=== PATIENT | female | born 1950 | race Caucasian/White ===

== ENCOUNTER 2017-02-01 23:56 | Emergency (ER) | payer MEDICARE, OTHER ==
[2017-02-02] MEDS ORDERED: DOXYcycline CAP(*) 100 MG PO ONE (00:50)
--- NOTE | 2017-02-02 00:52 | ED ---
Bite Injury/Animal - HPI Summary HPI Summary: Pt here w/ tick bite - noticed a few hours ago - doesn't believe this was attached for more than a few hours. Believes she got it in the garden tonight. Removed by nursing here today w/o difficulty. Pt would like doxycycline prophylaxis. Imms are UTD. - History of Current Complaint Chief Complaint: EDRashSkinAbscess Stated Complaint: TICK BITE/RIGHT ARM Time Seen by Provider: 02/02/17 00:33 Hx Obtained From: Patient Pain Intensity: 0 - Allergies/Home Medications Allergies/Adverse Reactions: Allergies Allergy/AdvReac Type Severity Reaction Status Date / Time ENVIRONMENTAL/SEASONAL Allergy Congestion Uncoded 02/03/14 10:39 HAYFEVER PMH/Surg Hx/FS Hx/Imm Hx Previously Healthy: Yes Endocrine/Hematology History: Denies: Hx Anticoagulant Therapy, Autoimmune Disease GI History: Reports: Hx Gastroesophageal Reflux Disease - WITH SPICY OR ACIDY FOODS Musculoskeletal History: Reports: Hx Arthritis - KNEES Sensory History: Reports: Hx Contacts or Glasses - READING GLASSES Denies: Hx Hearing Aid Opthamlomology History: Reports: Hx Contacts or Glasses - READING GLASSES Psychiatric History: Reports: Hx Anxiety - NO MEDICATION - Cancer History Cancer Type, Location and Year: MALIGNANT NEOPLASM OF BREAST - Surgical History Surgery Procedure, Year, and Place: 1963 tonsillectomy,. left shoulder surgery,. 1996 vein stripping to left leg [facility] [place]. 1999 LEFT FOOT GANGLION REMOVED, [facility] [place]. 2012 VARICOSE VEIN SURGERY BILATERAL LOWER EXTREMITIES, [facility] [place] Hx Anesthesia Reactions: No - Immunization History Immunizations Up to Date: Yes Infectious Disease History: No Infectious Disease History: Denies: Hx of Known/Suspected MRSA, Traveled Outside the in Last 30 Days - Social History Alcohol Use: Occasionally Hx Substance Use: No Substance Use Type: Reports: None Hx Tobacco Use: No Smoking Status (MU): Never Smoked Tobacco Review of Systems Constitutional: Negative Musculoskeletal: Negative Skin: Other - redness focal to area - no EM rash observed Neurological: Negative Psychological: Normal All Other Systems Reviewed And Are Negative: Yes Physical Exam Triage Information Reviewed: Yes Vital Signs On Initial Exam: Initial Vitals Temp Pulse Resp BP Pulse Ox 98.6 F 61 14 164/74 100 02/01/17 23:58 02/01/17 23:58 02/01/17 23:58 02/01/17 23:58 02/01/17 23:58 Vital Signs Reviewed: Yes Appearance: Positive: Well-Appearing, No Pain Distress, Well-Nourished Skin: Positive: Warm, Dry - 3mm area of erythema at location of tick bite - no EM rash and no signs of retained FB - nttp Head/Face: Positive: Normal Head/Face Inspection Eyes: Positive: EOMI ENT: Positive: Hearing grossly normal Respiratory/Lung Sounds: Positive: Breath Sounds Present Cardiovascular: Positive: Normal Musculoskeletal: Positive: Normal, Strength/ROM Intact Neurological: Positive: Normal, Sensory/Motor Intact, Alert, Oriented to Person Place, Time, CN Intact II-III Psychiatric: Positive: Normal Diagnostics - Vital Signs Vital Signs Temp Pulse Resp BP Pulse Ox 02/01/17 23:58 98.6 F 61 14 164/74 100 - Laboratory Lab Statement: Any lab studies that have been ordered have been reviewed, and results considered in the medical decision making process. Bite Injury Course/Dx - Course Course Of Treatment: Pt here tonight w tick bite she suspects to have been attached for < 12 hours. Removed by nursing. Discussed option to tx prophylactically w/ doxy or not as she does not technically need it however given the aggressive nature of ticks in our area, she would like to proceed with this medication. Reviewed f/u care and to monitor of danger s/sx of infection/Lyme. Pt agrees w/ plan. - Diagnoses Provider Diagnosis: Tick bite Discharge - Discharge Plan Condition: Stable Disposition: HOME Patient Education Materials: Tick Bite (ED) Referrals: Leslie Peres MD [Primary Care Provider] - Additional Instructions: Keep clean and monitor for signs of infection Follow-up with PCP if symptoms of Lyme disease develop *If you develop fever, chills, chest pain, shortness of breath, return to ED
[2017-02-02 02:35] VITALS: BP 130/77
== END 2017-02-02 01:45 | disposition home or self-care (01) ==
LOC: ED 23:56
DX: S40.861A Insect bite (nonvenomous) of right upper arm, initial encounter (principal); W57.XXXA Bitten or stung by nonvenomous insect and other nonvenomous arthropods, initial encounter; Y93.9 Activity, unspecified; Y92.89 Other specified places as the place of occurrence of the external cause; K21.9 Gastro-esophageal reflux disease without esophagitis; M17.0 Bilateral primary osteoarthritis of knee; F41.9 Anxiety disorder, unspecified; Z85.3 Personal history of malignant neoplasm of breast
CPT/HCPCS: 99281; A9270-GY

== ENCOUNTER 2018-10-16 15:55 | Emergency (ER) | payer MEDICARE, OTHER ==
[2018-10-16 16:19] VITALS: BP 131/63
--- NOTE | 2018-10-16 16:23 | UC ---
Throat Pain/Nasal Adalberto HPI - HPI Summary HPI Summary: 68-year-old female presents with 4 day history of sore throat. Reports she had URI symptoms a couple weeks ago that had resolved. She also notes that she has been around her grandson who was diagnosed with mono back in August. Denies fever , chills, nasal congestion, runny nose, ear pain, dysphagia, cough, abdominal pain, nausea, or vomiting. - History of Current Complaint Chief Complaint: UCRespiratory Stated Complaint: SORE THROAT Time Seen by Provider: 10/16/18 16:08 Hx Obtained From: Patient Pain Intensity: 0 - Allergies/Home Medications Allergies/Adverse Reactions: Allergies Allergy/AdvReac Type Severity Reaction Status Date / Time ENVIRONMENTAL/SEASONAL Allergy Congestion Uncoded 10/16/18 16:19 HAYFEVER PMH/Surg Hx/FS Hx/Imm Hx Previously Healthy: Yes Psychological History: Depression Other History Of: Negative For: Anticoagulant Therapy - Surgical History Surgical History: Yes Surgery Procedure, Year, and Place: 1963 tonsillectomy,. left shoulder surgery,. 1996 vein stripping to left leg [facility] [place]. 1999 LEFT FOOT GANGLION REMOVED, [facility] [place]. 2012 VARICOSE VEIN SURGERY BILATERAL LOWER EXTREMITIES, [facility] [place] - Family History Known Family History: Positive: Non-Contributory - Social History Occupation: Retired Lives: With Family Alcohol Use: Occasionally Substance Use Type: None Smoking Status (MU): Never Smoked Tobacco Review of Systems All Other Systems Reviewed And Are Negative: Yes Constitutional: Positive: Fatigue. Negative: Fever, Chills Eyes: Negative: Drainage, Eye Redness ENT: Positive: Sore Throat. Negative: Ear Ache, Nasal Discharge, Sinus Congestion, Sinus Pain/Tenderness Respiratory: Negative: Shortness Of Breath, Cough Gastrointestinal: Negative: Abdominal Pain, Vomiting, Nausea Genitourinary: Positive: Negative Musculoskeletal: Positive: Negative Neurological: Positive: Negative Is Patient Immunocompromised?: No Physical Exam - Summary Physical Exam Summary: GENERAL APPEARANCE: Well developed, well nourished, alert and cooperative, and appears to be in no acute distress. EYES: Conjunctiva clear. No drainage. PERRL, EOM intact. Vision is grossly intact. EARS: External auditory canals and tympanic membranes clear, hearing grossly intact. NOSE: No nasal discharge. THROAT: Mild pharyngeal erythema. Tonsils surgically absent. NECK: Neck supple, non-tender without lymphadenopathy. CARDIAC: Normal S1 and S2. No S3, S4 or murmurs. Rhythm is regular. There is no peripheral edema, cyanosis or pallor. Extremities are warm and well perfused. Capillary refill is less than 2 seconds. Peripheral pulses intact. LUNGS: Clear to auscultation without rales, rhonchi, wheezing or diminished breath sounds. ABDOMEN: Positive bowel sounds. Soft, nondistended, nontender. No guarding or rebound. No masses or hepatosplenomegally. MUSKULOSKELETAL: ROM intact to all extremities. No joint erythema or tenderness. Normal muscular development. Normal gait. SKIN: Skin normal color, texture and turgor with no lesions or eruptions. Triage Information Reviewed: Yes Vital Signs: Initial Vital Signs Temp 99.8 F 10/16/18 16:16 Pulse 71 10/16/18 16:16 Resp 12 10/16/18 16:16 BP 131/63 10/16/18 16:16 Pulse Ox 99 10/16/18 16:16 Vital Signs Reviewed: Yes Throat Pain/Nasal Course/Dx - Course Course Of Treatment: 68-year-old female presents with 4 day history of sore throat. Reports she had URI symptoms a couple weeks ago that had resolved. She also notes that she has been around her grandson who was diagnosed with mono back in August. Denies fever , chills, nasal congestion, runny nose, ear pain, dysphagia, cough, abdominal pain, nausea, or vomiting. Afebrile. Vital signs stable. Patient had mild pharyngeal erythema with surgically absent tonsils, no cervical lymphadenopathy and otherwise unremarkable exam. Rapid strep test was negative. Recommending symptomatic treatment for a viral pharyngitis. She is to follow-up with her primary care provider in 3-5 days if symptoms do not improve. Anticipatory guidance and warning signs are reviewed with the patient. Verbalizes understanding and agrees with plan of care. - Differential Dx/Diagnosis Differential Diagnosis/HQI/PQRI: Mononucleosis, Pharyngitis, Tonsillitis Provider Diagnosis: Viral pharyngitis Discharge - Sign-Out/Discharge Documenting (check all that apply): Patient Departure All imaging exams completed and their final reports reviewed: No Studies - Discharge Plan Condition: Stable Disposition: HOME Patient Education Materials: Pharyngitis (ED) Referrals: Leslie Peres MD [Primary Care Provider] - 3 Days Additional Instructions: Your rapid strep test in the clinic today was negative. Your symptoms are likely from a viral infection. Viral infections do not respond to antibiotics and are limited to the treatment of symptoms. Viral infections typically run their course in 7-10 days. Drink plenty of fluids to avoid dehydration especially if you are running any fever. Use salt water gargles several times a day. Take over the counter acetaminophen (Tylenol) or ibuprofen (Advil, Motrin) according to directions as needed for pain or fever. You may also use Chloraseptic spray or Cepacol lonzenges according to directions which contain a numbing medication and can provide some temporary relief from your sore throat. Return here or follow up with your primary care provider in 3-5 days if symptoms persist. Seek immediate medical attention in the emergency room if you have fever greater than 100.5 F despite taking acetaminophen or ibuprofen, are unable to swallow or develop drooling, are unable to open your mouth fully, are unable to eat or drink, have pain that is not relieved with over the counter pain medication, or have any difficulty breathing. - Billing Disposition and Condition Condition: STABLE Disposition: Home
== END 2018-10-16 16:30 | disposition home or self-care (01) ==
LOC: UCEAST 15:55
DX: J02.8 Acute pharyngitis due to other specified organisms (principal)
CPT/HCPCS: 87651; 99211; G0463